=== PATIENT | male | born 1995 | race Caucasian/White ===

== ENCOUNTER 2023-03-30 12:52 | Emergency (ER) | payer SELFPAY ==
[2023-03-30 12:52] VITALS: BP 131/90; PULSE 74; RESP 18; TEMP 36.9; O2SAT 96
--- NOTE | 2023-03-30 13:08 | ED.DENTAL ---
HPI - Dental/Oral General Chief complaint: Dental/Oral Stated complaint: dental pain. Time Seen by Provider: 03/30/23 13:08 Source: patient Mode of arrival: ambulatory Limitations: no limitations History of Present Illness HPI Narrative: 28-year-old white male complains of left upper molar toothache for the last 3 days worse today. She has taken ibuprofen about 2000 mg in the last 24 hours. Hurts when he chews. Otherwise he is eating drinking voiding and stooling fine no fever cough runny nose sore throat bleeding or bruising swelling lumps or bumps rash or itching dizziness or lightheadedness weakness or numbness or any other complaints. Related Data Allergies Allergy/AdvReac Type Severity Reaction Status Date / Time No Known Allergies Allergy Verified 03/30/23 13:29 Review of Systems Review of Systems: All systems reviewed & are unremarkable except as noted in HPI and below Exam Narrative: White male no apparent distress.? Head:? Normocephalic atraumatic.? Eyes conjunctiva pink sclera nonicteric.? Ears TMs are normal.? Oropharynx is clear with moist mucous membranes no exudates.? Poor dentition especially upper teeth left posterior molar decayed with tenderness of the gum. Then also some mild swelling of the gum.Neck is supple no lymphadenopathy nontender full range of motion. Lungs are clear without wheezes rales or rhonchi.? Heart is regular rate rhythm without murmurs gallops or rubs.? Extremities no cyanosis clubbing or edema.? Neurological she is alert and oriented x4 motor and sensory grossly intact.? Skin is warm and dry without lesions. Course Vital Signs Vital signs: Vital Signs Temperature 36.9 C 03/30/23 12:52 Pulse Rate 74 03/30/23 12:52 Respiratory Rate 18 03/30/23 12:52 Blood Pressure 131/90 03/30/23 12:52 Pulse Oximetry 96 03/30/23 12:52 Oxygen Delivery Room Air 03/30/23 12:52 Temperature 36.7 C 03/30/23 14:14 Pulse Rate 99 03/30/23 14:14 Respiratory Rate 17 03/30/23 14:14 Blood Pressure 133/82 03/30/23 14:14 Pulse Oximetry 97 03/30/23 14:14 Oxygen Delivery Room Air 03/30/23 14:14 MDM - Dental/Oral MDM Narrative Medical decision making narrative: Patient placed in room # 3 History and physical performed. Independent Historian: Brynn Differential Dx includes but not limited to: dental abscess dental caries Medications were Reviewed: Medications, treatment, ED course: Toradol 30 IM Independently Interpreted by me: External Source Review: Shared decision Making: evaluation was discussed with patient his all questions were asked and answered they agree with plan. Social Situation Impacting Patients Care: DISCHARGE DIAGNOSIS: Dental pain DISPOSITION: discharged home CONDITION AT DISCHARGE: stable Discharge Plan Discharge Clinical Impression: Pain, dental Patient Disposition: Home, Self-Care Condition: Stable Instructions: Antibiotic Form, Dental Abscess (ED) Additional Instructions: Tylenol 500 m tablets 4 times a day as needed for pain. And or ibuprofen 200 m or 3 tablets 3 times a day as needed for pain. Tramadol 50 mg every 6 hours as needed for pain. Pen VK 500 twice a day for 10 days. Follow-up with primary care doctor and/or your dentist. Prescriptions: New penicillin V potassium 500 mg tablet 500 mg PO Q12H 10 Days Qty: 20 0RF tramadol 50 mg tablet 50 mg PO Q6H PRN (Reason: pain) 4 Days Qty: 12 0RF Follow-up/Referrals: Matt,Yeni Colin MD [Primary Care Provider] - Time of Disposition: 13:33
[2023-03-30] MEDS: KETOROLAC (*BKC) 60 MG/2 ML VIAL 30 MG IM (13:46)
[2023-03-30 14:14] VITALS: BP 133/82; PULSE 99; RESP 17; TEMP 36.7; O2SAT 97
== END 2023-03-30 14:14 | disposition home or self-care (01) ==
LOC: CHSED 13:39
PROVIDERS: Emergency Provider Emergency Medicine; PCP Internal Medicine Pulmonary Disease
DX: K08.89 Other specified disorders of teeth and supporting structures (principal)
CPT/HCPCS: 96372; 99283; J1885

== ENCOUNTER 2023-08-01 10:38 | Emergency (ER) | payer SELFPAY ==
[2023-08-01 10:38] VITALS: BP 158/104; PULSE 90; RESP 18; TEMP 36.1; O2SAT 97
--- NOTE | 2023-08-01 10:41 | ED.DENTAL ---
HPI - Dental/Oral General Chief complaint: Dental/Oral Stated complaint: dental pain Time Seen by Provider: 08/01/23 10:41 Source: patient Mode of arrival: ambulatory Limitations: no limitations History of Present Illness HPI Narrative: patient is a 28-year-old male with a left upper jaw pain around a fractured tooth. MD Complaint: tooth pain and tooth injury Location: Tooth # ( Fourteen) Onset (ago): day(s) (3) Duration: constant Severity: moderate Severity scale (1-10): 5 Relieving factors: nothing Exacerbating factors: chewing, cold, heat and drinking fluids Context: trauma (mechanism) ( fractured tooth with eating) Treatment prior to arrival: oral analgesic ( Tylenol) Related Data Allergies Allergy/AdvReac Type Severity Reaction Status Date / Time No Known Allergies Allergy Verified 03/30/23 13:29 Review of Systems Review of Systems: All systems reviewed & are unremarkable except as noted in HPI and below Constitutional: Constitutional: Reports no additional constitutional complaints Eyes: Eyes: Reports no additional eye complaints ENT: Reports system reviewed and no additional complaints, except as documented Cardiovascular: Cardiovascular: Reports no additional cardiovascular complaints Respiratory: Respiratory: Reports no additional respiratory complaints Gastrointestinal: Gastrointestinal: Reports no additional gastrointestinal complaints Genitourinary: Genitourinary: Reports no additional male genitourinary complaints Musculoskeletal: Musculoskeletal: Reports no additional musculoskeletal complaints Integumentary/Breasts: Skin/Breast: Reports system reviewed and no additional complaints, except as docu Neurologic: Reports system reviewed and no additional complaints, except as documented Psychiatric: Psychiatric: Reports no additional psychiatric complaints Endocrine: Endocrine: Reports no additional endocrine complaints Hematologic/Lymphatic: Hematologic/Lymphatic: Reports no additional hematologic/lymphatic complaints Allergic/Immunologic: Allergic/Immunologic: Reports no additional allergic/immunologic complaints Exam Const: General: healthy appearing Nutritional Appearance: well nourished Orientation/consciousness: patient oriented x3 HENMT: Head: normal to inspection Ears: external ears normal Face/Nose/Sinus: Normal external nose present Other: left upper jaw tooth 14 has a fracture with somewhat of an open tooth Eyes: Conjunctivae: conjunctivae normal Pupils: Equal, round and reactive pupils present EOM: EOMs intact bilaterally Neck: Neck: normal visual inspection Chest: Chest palpation & inspection: normal inspection of the chest Resp: Effort & Inspection: normal respiratory effort and not labored Auscultation: clear to auscultation bilaterally Cardio: Rate: regular rate Rhythm: regular rhythm Heart sounds: no murmurs GI: Inspection: non-distended GI Palp: Yes Soft to palpation and No Tenderness to palpation present (GI) Auscultation: normal bowel sounds : General: Yes bladder normal to palpation Back/Spine/Pelvis: Back: no CVA tenderness Skin: General skin exam: normal color Rashes: no rashes Wounds: no wounds Neuro: General: patient oriented x3 Cranial nerves: Yes Nystagmus not present Speech: normal speech Extrem: General: normal to inspection Psych: Mental Status: mental status grossly normal Affect: normal affect Attitude: cooperative Course Vital Signs Vital signs: Vital Signs Temperature 36.1 C L 08/01/23 10:38 Pulse Rate 90 08/01/23 10:38 Respiratory Rate 18 08/01/23 10:38 Blood Pressure 158/104 H 08/01/23 10:38 Pulse Oximetry 97 08/01/23 10:38 Oxygen Delivery Room Air 08/01/23 10:38 Temperature 36.1 C L 08/01/23 10:38 Pulse Rate 90 08/01/23 10:38 Respiratory Rate 18 08/01/23 10:38 Blood Pressure 158/104 H 08/01/23 10:38 Pulse Oximetry 97 08/01/23 10:38 Oxygen Delivery Room Air 08/01/23 1
[2023-08-01] MEDS: KETOROLAC (*BKC) 60 MG/2 ML VIAL IM (10:59)
[2023-08-01] MEDS: AMOXICILLIN/CLAVULANATE K 875-125 MG TAB 1 TABLET PO (11:00)
== END 2023-08-01 11:11 | disposition home or self-care (01) ==
PROVIDERS: Emergency Provider Emergency Medicine
DX: R68.84 Jaw pain (principal)
CPT/HCPCS: 96372; 99283; A9270; J1885

== ENCOUNTER 2023-10-03 23:45 | Emergency (ER) | payer SELFPAY ==
[2023-10-03 23:47] VITALS: BP 142/105; PULSE 84; RESP 18; TEMP 36.5; O2SAT 96
--- NOTE | 2023-10-03 23:52 | ED.DENTAL ---
HPI - Dental/Oral General Chief complaint: Dental/Oral Stated complaint: oral pain Time Seen by Provider: 10/03/23 23:52 Source: patient Mode of arrival: ambulatory Limitations: no limitations History of Present Illness HPI Narrative: Patient is a 28-year-old male with a left upper tooth pain after a filling has fallen out. He has an open tooth. MD Complaint: tooth pain Location: Tooth # ( Fourteen) Onset (ago): day(s) (3) Duration: constant Severity: moderate Severity scale (1-10): 7 Relieving factors: nothing Exacerbating factors: chewing, cold, heat and drinking fluids Context: history of dental caries and poor dental care Treatment prior to arrival: oral analgesic Related Data Allergies Allergy/AdvReac Type Severity Reaction Status Date / Time No Known Allergies Allergy Verified 03/30/23 13:29 Review of Systems Review of Systems: All systems reviewed & are unremarkable except as noted in HPI and below Constitutional: Constitutional: Reports no additional constitutional complaints Eyes: Eyes: Reports no additional eye complaints ENT: Reports system reviewed and no additional complaints, except as documented Cardiovascular: Cardiovascular: Reports no additional cardiovascular complaints Respiratory: Respiratory: Reports no additional respiratory complaints Gastrointestinal: Gastrointestinal: Reports no additional gastrointestinal complaints Genitourinary: Genitourinary: Reports no additional male genitourinary complaints Musculoskeletal: Musculoskeletal: Reports no additional musculoskeletal complaints Integumentary/Breasts: Skin/Breast: Reports system reviewed and no additional complaints, except as docu Neurologic: Reports system reviewed and no additional complaints, except as documented Psychiatric: Psychiatric: Reports no additional psychiatric complaints Endocrine: Endocrine: Reports no additional endocrine complaints Hematologic/Lymphatic: Hematologic/Lymphatic: Reports no additional hematologic/lymphatic complaints Allergic/Immunologic: Allergic/Immunologic: Reports no additional allergic/immunologic complaints Exam Const: General: healthy appearing Nutritional Appearance: well nourished Orientation/consciousness: patient oriented x3 HENMT: Head: normal to inspection Ears: external ears normal Face/Nose/Sinus: Normal external nose present Other: tooth 14 has an opening centrally where the cap/filling has fallen out; no abscess Eyes: Conjunctivae: conjunctivae normal Pupils: Equal, round and reactive pupils present EOM: EOMs intact bilaterally Neck: Neck: normal visual inspection Chest: Chest palpation & inspection: normal inspection of the chest Resp: Effort & Inspection: normal respiratory effort and not labored Auscultation: clear to auscultation bilaterally Cardio: Rate: regular rate Rhythm: regular rhythm Heart sounds: no murmurs GI: Inspection: non-distended Auscultation: normal bowel sounds : General: Yes bladder normal to palpation Back/Spine/Pelvis: Back: no CVA tenderness Skin: General skin exam: normal color Rashes: no rashes Wounds: no wounds Neuro: General: patient oriented x3 Cranial nerves: Yes Nystagmus not present Speech: normal speech Extrem: General: normal to inspection Psych: Mental Status: mental status grossly normal Affect: normal affect Attitude: cooperative Course Vital Signs Vital signs: Vital Signs Temperature 36.5 C 10/03/23 23:47 Pulse Rate 84 10/03/23 23:47 Respiratory Rate 18 10/03/23 23:47 Blood Pressure 142/105 H 10/03/23 23:47 Pulse Oximetry 96 10/03/23 23:47 Oxygen Delivery Room Air 10/03/23 23:47 Temperature 36.5 C 10/03/23 23:47 Pulse Rate 84 10/03/23 23:47 Respiratory Rate 18 10/03/23 23:47 Blood Pressure 142/105 H 10/03/23 23:47 Pulse Oximetry 96 10/03/23 23:47 Oxygen Delivery Room Air 10/03/23 23:47 MDM - Dental/Oral MDM Narrative Medical decision ma
[2023-10-04] MEDS: AMOXICILLIN 500 MG CAPSULE PO (00:07)
[2023-10-04] MEDS: KETOROLAC (*BKC) 60 MG/2 ML VIAL IM (00:09)
[2023-10-04 00:24] VITALS: BP 135/90; PULSE 80; RESP 18; TEMP 36.6; O2SAT 98
== END 2023-10-04 00:24 | disposition home or self-care (01) ==
PROVIDERS: Emergency Provider Emergency Medicine
DX: R68.84 Jaw pain (principal)
CPT/HCPCS: 96372; 99283; A9270; J1885

== ENCOUNTER 2023-11-16 18:10 | Emergency (ER) | payer SELFPAY ==
[2023-11-16 18:10] VITALS: BP 129/90; PULSE 84; RESP 18; TEMP 36.7; O2SAT 98
--- NOTE | 2023-11-16 18:42 | ED.DENTAL ---
HPI - Dental/Oral General Chief complaint: Dental/Oral Stated complaint: DENTAL PAIN Time Seen by Provider: 11/16/23 18:12 Source: patient Mode of arrival: ambulatory Limitations: no limitations History of Present Illness HPI Narrative: Patient is 28 year male with significant past medical history that presents today for a dental infection. Patient has had infection in his upper back left molar for the last 4 days. Did his 2 toes also shift but infection been getting worse and has now very painful. He has not seen a dentist yet but he does plan to see 1. MD Complaint: tooth pain Teeth map: 1. Abscess Onset (ago): day(s) Duration: constant Severity: moderate Severity scale (1-10): 4 Relieving factors: NSAIDs Exacerbating factors: chewing Context: history of dental caries Associated symptoms: fever Treatment prior to arrival: none Related Data Home Medications Medication Instructions Recorded Confirmed No Home Medications 11/16/23 11/16/23 Allergies Allergy/AdvReac Type Severity Reaction Status Date / Time No Known Allergies Allergy Verified 11/16/23 18:19 Review of Systems Review of Systems: All systems reviewed & are unremarkable except as noted in HPI and below Constitutional: Constitutional: Reports as per HPI Eyes: Eyes: Reports no additional eye complaints ENT: Reports as per HPI Cardiovascular: Cardiovascular: Reports no additional cardiovascular complaints Respiratory: Respiratory: Reports no additional respiratory complaints Gastrointestinal: Gastrointestinal: Reports no additional gastrointestinal complaints Genitourinary: Genitourinary: Reports no additional male genitourinary complaints Musculoskeletal: Musculoskeletal: Reports no additional musculoskeletal complaints Integumentary/Breasts: Skin/Breast: Reports system reviewed and no additional complaints, except as docu Neurologic: Reports system reviewed and no additional complaints, except as documented Psychiatric: Psychiatric: Reports no additional psychiatric complaints Endocrine: Endocrine: Reports no additional endocrine complaints Hematologic/Lymphatic: Hematologic/Lymphatic: Reports no additional hematologic/lymphatic complaints Allergic/Immunologic: Allergic/Immunologic: Reports no additional allergic/immunologic complaints Exam Const: General: healthy appearing Nutritional Appearance: well nourished Orientation/consciousness: patient oriented x3 HENMT: Head: normal to inspection Ears: external ears normal Face/Nose/Sinus: Normal external nose present Face and sinus: normal facial exam Other: ship 2 with an abscess formation and upper back left molar Eyes: Conjunctivae: conjunctivae normal Pupils: Equal, round and reactive pupils present EOM: EOMs intact bilaterally Neck: Neck: normal visual inspection Chest: Chest palpation & inspection: normal inspection of the chest Resp: Effort & Inspection: normal respiratory effort Auscultation: clear to auscultation bilaterally Cardio: Rate: regular rate Rhythm: regular rhythm GI: GI Palp: Yes Soft to palpation Back/Spine/Pelvis: Back: no CVA tenderness Skin: General skin exam: normal color Rashes: no rashes Wounds: no wounds Neuro: General: patient oriented x3 Cranial nerves: Yes Nystagmus not present Extrem: General: normal to inspection Psych: Mental Status: mental status grossly normal Affect: normal affect Course Vital Signs Vital signs: Vital Signs Temperature 98.0 F 11/16/23 18:10 Pulse Rate 84 11/16/23 18:10 Respiratory Rate 18 11/16/23 18:10 Blood Pressure 129/90 11/16/23 18:10 Pulse Oximetry 98 11/16/23 18:10 Oxygen Delivery Room Air 11/16/23 18:10 Temperature 98.0 F 11/16/23 18:10 Pulse Rate 84 11/16/23 18:10 Respiratory Rate 18 11/16/23 18:10 Blood Pressure 129/90 11/16/23 18:10 Pulse Oximetry 98 11/16/23 18:10 Oxygen Delivery Room Air 11/16/23 18:10 MDM - Den
[2023-11-16] MEDS: CLINDAMYCIN HCL 150 MG CAP 300 MG PO (19:14)
[2023-11-16 19:25] VITALS: BP 130/78; PULSE 82; RESP 18; O2SAT 99
== END 2023-11-16 19:25 | disposition home or self-care (01) ==
PROVIDERS: Emergency Provider Family Medicine
DX: K04.7 Periapical abscess without sinus (principal)
CPT/HCPCS: 99283; A9270

== ENCOUNTER 2023-11-29 17:35 | Emergency (ER) | payer SELFPAY ==
[2023-11-29 18:10] VITALS: BP 136/102; PULSE 98; RESP 20; TEMP 36.8; O2SAT 97
--- NOTE | 2023-11-29 18:33 | ED.GENADULT ---
HPI - General Adult General Chief complaint: Dental/Oral Stated complaint: left cheek swelling; dental pain Related Data Allergies Allergy/AdvReac Type Severity Reaction Status Date / Time No Known Allergies Allergy Verified 11/16/23 18:19 Course Vital Signs Vital signs: Vital Signs Temperature 36.8 C 11/29/23 18:10 Pulse Rate 98 11/29/23 18:10 Respiratory Rate 11/29/23 18:10 Blood Pressure 136/102 H 11/29/23 18:10 Pulse Oximetry 97 11/29/23 18:10 Oxygen Delivery Room Air 11/29/23 18:10 Temperature 36.8 C 11/29/23 18:10 Pulse Rate 98 11/29/23 18:10 Respiratory Rate 11/29/23 18:10 Blood Pressure 136/102 H 11/29/23 18:10 Pulse Oximetry 97 11/29/23 18:10 Oxygen Delivery Room Air 11/29/23 18:10 Medical Decision Making Vital Signs Vital Signs: Vital Signs Temperature 36.8 C 11/29/23 18:10 Pulse Rate 98 11/29/23 18:10 Respiratory Rate 11/29/23 18:10 Blood Pressure 136/102 H 11/29/23 18:10 Pulse Oximetry 97 11/29/23 18:10 Oxygen Delivery Room Air 11/29/23 18:10 Temperature 36.8 C 11/29/23 18:10 Pulse Rate 98 11/29/23 18:10 Respiratory Rate 11/29/23 18:10 Blood Pressure 136/102 H 11/29/23 18:10 Pulse Oximetry 97 11/29/23 18:10 Oxygen Delivery Room Air 11/29/23 18:10 Discharge Plan Discharge Prescriptions: No Action clindamycin HCl 300 mg capsule 300 mg PO TID Qty: 30 0RF Follow-up/Referrals: UNKNOWN,DOCTOR [Primary Care Provider] - Stand Alone Forms: Work/School Release IP
--- NOTE | 2023-11-29 18:45 | ED.DENTAL ---
HPI - Dental/Oral General Chief complaint: Dental/Oral Stated complaint: left cheek swelling; dental pain Source: patient Mode of arrival: ambulatory Limitations: no limitations History of Present Illness HPI Narrative: 28-year-old male with extensive dental caries presents to the ED with a 3 day history of -- left upper dental pain with swelling of the jaw. No fever or chills. Complaint: tooth pain Location: Tooth # ( 16) Onset (ago): day(s) ( 3 days) Duration: constant Severity: moderate Relieving factors: nothing Exacerbating factors: nothing Context: history of dental caries Associated symptoms: gum swelling and other ( left upper jaw pain) Treatment prior to arrival: none Related Data Allergies Allergy/AdvReac Type Severity Reaction Status Date / Time No Known Allergies Allergy Verified 11/16/23 18:19 Review of Systems Review of Systems: All systems reviewed & are unremarkable except as noted in HPI and below PMFSH Past Medical History Medical History Dental caries Exam Const: Orientation/consciousness: patient oriented x3 Limitations: no limitations HENMT: Head: normal to inspection Ears: external ears normal Face/Nose/Sinus: Normal external nose present Face and sinus: normal facial exam Mouth: Yes Normal oral and palatal mucosa present Teeth and gingiva: dentition normal ( extensive dental caries involving multiple teeth) and abnormal tooth and associated gingiva ( 16. Is fractured and carious. Adjoining Jaw is swollen.) Throat: posterior oropharynx normal Eyes: Conjunctivae: conjunctivae normal Pupils: Equal, round and reactive pupils present EOM: EOMs intact bilaterally Direct Ophthalmoscopy: no photophobia Neck: Neck: normal visual inspection, no lymphadenopathy and no meningeal signs Chest: Chest palpation & inspection: normal inspection of the chest Resp: Effort & Inspection: normal respiratory effort Auscultation: clear to auscultation bilaterally Cardio: Rate: regular rate Rhythm: regular rhythm GI: Auscultation: normal bowel sounds Rectal Exam: normal sphincter tone : General: Yes no CVA tenderness Back/Spine/Pelvis: Back: no CVA tenderness Skin: General skin exam: normal color Rashes: no rashes Wounds: no wounds Neuro: General: patient oriented x3, moves all extremities, no meningeal signs, no focal motor deficits and CN's II-XI intact bilaterally Cranial nerves: Yes Nystagmus not present Speech: normal speech Gait exam (Neuro): Normal gait present Extrem: General: normal to inspection and no clubbing, cyanosis or edema Psych: Mental Status: mental status grossly normal Affect: normal affect Attitude: cooperative Course Course Emergency Course: Left upper dental pain with adjoining jaw swelling extensive dental caries Vital Signs Vital signs: Vital Signs Temperature 36.8 C 11/29/23 18:10 Pulse Rate 98 11/29/23 18:10 Respiratory Rate 11/29/23 18:10 Blood Pressure 136/102 H 11/29/23 18:10 Pulse Oximetry 97 11/29/23 18:10 Oxygen Delivery Room Air 11/29/23 18:10 Temperature 36.8 C 11/29/23 18:10 Pulse Rate 98 11/29/23 18:10 Respiratory Rate 11/29/23 18:10 Blood Pressure 136/102 H 11/29/23 18:10 Pulse Oximetry 97 11/29/23 18:10 Oxygen Delivery Room Air 11/29/23 18:10 Discharge Plan Discharge Clinical Impression: Toothache, Dental caries Patient Disposition: Home, Self-Care Condition: Stable Instructions: Antibiotic Form, Dental Abscess (ED), Toothache (ED) Patient Language: Telugu Prescriptions: New clindamycin HCl 300 mg capsule 300 mg PO Q8H Qty: 20 0RF No Action clindamycin HCl 300 mg capsule 300 mg PO TID Qty: 30 0RF Follow-up/Referrals: UNKNOWN,DOCTOR [Non-Staff] - Time of Disposition: 18:50
[2023-11-29] MEDS: HYDROcodone/acetaminophen (*CRX) 5-325 MG TABLET 1 TAB PO (18:58)
[2023-11-29] MEDS: CLINDAMYCIN HCL 150 MG CAP 300 MG PO (18:58)
== END 2023-11-29 19:02 | disposition home or self-care (01) ==
PROVIDERS: Emergency Provider Internal Medicine Critical Care Medicine
DX: K02.9 Dental caries, unspecified (principal)
CPT/HCPCS: 99283; A9270

== ENCOUNTER 2023-12-02 17:01 | Emergency (ER) | payer SELFPAY ==
[2023-12-02 17:01] VITALS: BP 131/107; PULSE 85; RESP 18; TEMP 36.8; O2SAT 96
[2023-12-02 17:05] VITALS: TEMP 36.8
--- NOTE | 2023-12-02 17:14 | ED.DENTAL ---
HPI - Dental/Oral General Chief complaint: Dental/Oral Stated complaint: dental pain Time Seen by Provider: 12/02/23 17:11 Source: patient Mode of arrival: ambulatory Limitations: no limitations History of Present Illness HPI Narrative: S a 28-year-old male that presents with some dental pain and surrounding gum inflammation left upper molar area with facial swelling and left submandibular gland tenderness with no fever chills no shortness of breath. Patient has been on a round of clindamycin with no relief. MD Complaint: tooth pain Teeth map: 1. Dental abscess with surrounding gum inflammation Onset (ago): week(s) Severity: moderate Related Data Allergies Allergy/AdvReac Type Severity Reaction Status Date / Time No Known Allergies Allergy Verified 12/02/23 17:05 Review of Systems Review of Systems: All systems reviewed & are unremarkable except as noted in HPI and below PMFSH Past Medical History Medical History Dental caries Exam Const: General: healthy appearing and no acute distress Nutritional Appearance: well nourished Orientation/consciousness: patient oriented x3 Limitations: no limitations HENMT: Head: normal to inspection Eyes: Conjunctivae: conjunctivae normal Neck: Neck: normal visual inspection and lymphadenopathy Chest: Chest palpation & inspection: normal inspection of the chest Resp: Effort & Inspection: normal respiratory effort Auscultation: clear to auscultation bilaterally Cardio: Rate: regular rate Rhythm: regular rhythm GI: GI Palp: Yes Soft to palpation Auscultation: normal bowel sounds Course Course Emergency Course: Patient received a dose of 1g ceftriaxone IM and 60mg of IM Toradol. Vital Signs Vital signs: Vital Signs Temperature 36.8 C 12/02/23 17:01 Pulse Rate 85 12/02/23 17:01 Respiratory Rate 18 12/02/23 17:01 Blood Pressure 131/107 H 12/02/23 17:01 Pulse Oximetry 96 12/02/23 17:01 Oxygen Delivery Room Air 12/02/23 17:01 Temperature 36.8 C 12/02/23 17:05 Pulse Rate 85 12/02/23 17:01 Respiratory Rate 18 12/02/23 17:01 Blood Pressure 131/107 H 12/02/23 17:01 Pulse Oximetry 96 12/02/23 17:01 Oxygen Delivery Room Air 12/02/23 17:01 Critical Care Time Critical Care Time Critical Care Time: No Discharge Plan Discharge Clinical Impression: Toothache, Dental abscess, Dental caries Patient Disposition: Home, Self-Care Condition: Stable Instructions: Antibiotic Form, Dental Abscess (ED) Additional Instructions: Advised to take medication as prescribed follow-up with dentist as scheduled. Prescriptions: New amoxicillin-pot clavulanate [Augmentin] 500-125 mg tablet 1 tablet PO TID Qty: 30 0RF naproxen 500 mg tablet 500 mg PO BID PRN (Reason: pain) Qty: 14 0RF No Action clindamycin HCl 300 mg capsule 300 mg PO TID Qty: 30 0RF clindamycin HCl 300 mg capsule 300 mg PO Q8H Qty: 20 0RF Follow-up/Referrals: Marsha Gutierrez TECH [Primary Care Provider] - Stand Alone Forms: Work/School Release IP Time of Disposition: 17:17
[2023-12-02] MEDS: cefTRIAXone 1 GM, LIDOCAINE HCL 1% LOCAL INJ 2.1 ML IM (17:21)
[2023-12-02] MEDS: KETOROLAC (*BKC) 60 MG/2 ML VIAL IM (17:21)
[2023-12-02 17:45] VITALS: BP 131/107; PULSE 85; RESP 18; TEMP 36.8; O2SAT 96
== END 2023-12-02 17:45 | disposition home or self-care (01) ==
LOC: CHSED 17:30
PROVIDERS: Emergency Provider Emergency Medicine
DX: K04.7 Periapical abscess without sinus (principal); K02.9 Dental caries, unspecified
CPT/HCPCS: 96372; 99284; J0696; J1885

== ENCOUNTER 2024-01-08 11:40 | Emergency (ER) | payer SELFPAY ==
[2024-01-08 11:41] VITALS: BP 132/89; PULSE 88; RESP 18; TEMP 36.7; O2SAT 98
--- NOTE | 2024-01-08 11:44 | ED.DENTAL ---
HPI - Dental/Oral General Chief complaint: Dental/Oral Stated complaint: dental pain Time Seen by Provider: 01/08/24 11:44 Source: patient Mode of arrival: ambulatory Limitations: no limitations History of Present Illness HPI Narrative: This is a 28-year-old male with history of dental caries, presents to the emergency department complaining right upper jaw pain. The patient states he has a chipped tooth in the area that become more painful and the last week. Overnight, the pain increased to an 8/10. This has improved with use of [id number] Tylenol and ibuprofen. The patient states he took ibuprofen approximately 1 hour prior to arrival. He denies difficulty breathing, weakness/numbness, loss of consciousness other neck swelling. He states he has an appointment with a dentist in 2 weeks. He has no other complaints at this time. Related Data Allergies Allergy/AdvReac Type Severity Reaction Status Date / Time No Known Allergies Allergy Verified 01/08/24 11:41 Review of Systems Review of Systems: All systems reviewed & are unremarkable except as noted in HPI and below PMFSH Past Medical History Medical History Dental caries Surgical History Surgical History No significant past surgical history Social History Social History Smoking status: Never smoker Alcohol intake: current Substance use: current Substance use type: marijuana Exam Narrative: GENERAL: Well-developed, well-nourished, and in no acute distress. HEAD: Normocephalic, atraumatic. There is mild right upper maxillary swelling without erythema. EYES: PERRLA and EOMI. ENT: Nares clear, no rhinorrhea or epistaxis. Mucous membranes moist. Oropharynx without tonsillar hypertrophy exudate or other lesions. Tooth #2 demonstrates changes consistent with dental caries and DKA, the base of the scene to this erythematous, tender and swollen. NECK: Supple. No adenopathy or masses. No carotid bruits or JVD CHEST: Clear to auscultation. No respiratory distress. No wheezes rales or rhonchi HEART: Regular rate and rhythm. No murmur heard. Normal peripheral pulses. SKIN: Warm, dry, no rash. NEURO: Alert and oriented x3. No focal deficit. Moving all 4 limbs spontaneously PSYCH: Normal mood and affect. Course Course Emergency Course: 11:45 - The patient's exam is consistent with dental caries and subsequent abscess. Will discharge with oral antibiotics and recommendation to follow up with dental as scheduled. I discussed the findings and recommendations with the patient. Discussed return and emergency precautions including signs/symptoms of deep space neck infection and airway compromise. The patient voiced understanding and agreement with the plan. All questions answered to his satisfaction. Vital Signs Vital signs: Vital Signs Temperature 98.0 F 01/08/24 11:41 Pulse Rate 88 01/08/24 11:41 Respiratory Rate 18 01/08/24 11:41 Blood Pressure 132/89 01/08/24 11:41 Pulse Oximetry 98 01/08/24 11:41 Oxygen Delivery Room Air 01/08/24 11:41 Temperature 98.0 F 01/08/24 11:41 Pulse Rate 88 01/08/24 11:41 Respiratory Rate 18 01/08/24 11:41 Blood Pressure 132/89 01/08/24 11:41 Pulse Oximetry 98 01/08/24 11:41 Oxygen Delivery Room Air 01/08/24 11:41 MDM - Dental/Oral MDM Narrative Medical decision making narrative: plan: Oral antibiotics, dental follow-up, primary care follow-up Differential Diagnosis Differential diagnosis: Likely dental caries, toothache, dental abscess and other Discharge Plan Discharge Clinical Impression: Toothache, Dental abscess Patient Disposition: Home, Self-Care Condition: Stable Instructions: Antibiotic Form, Dental Abscess (ED) Additional Instructions: You were seen in the emergency departm
[2024-01-08 11:52] VITALS: BP 132/89; PULSE 88; RESP 18; TEMP 36.7; O2SAT 98
== END 2024-01-08 11:52 | disposition home or self-care (01) ==
LOC: CHSED 11:50
PROVIDERS: Emergency Provider Preventive Medicine Aerospace Medicine
DX: K04.7 Periapical abscess without sinus (principal)
CPT/HCPCS: 99283

== ENCOUNTER 2024-03-15 13:34 | Emergency (ER) | payer SELFPAY ==
[2024-03-15 13:35] VITALS: BP 136/90; PULSE 88; RESP 18; TEMP 36.8; O2SAT 96
--- NOTE | 2024-03-15 13:36 | ED.DENTAL ---
HPI - Dental/Oral General Chief complaint: Dental/Oral Stated complaint: dental pain Time Seen by Provider: 03/15/24 13:36 Source: patient Mode of arrival: ambulatory Limitations: no limitations History of Present Illness HPI Narrative: 29-year-old male with a history of dental caries presents to the ED with -- left upper molar dental pain. He has had previous episodes of dental pain in that region. No fever or chills Complaint: tooth pain Location: Tooth # (16,11,12) Onset (ago): day(s) ( 3 days) Duration: constant Severity: moderate Relieving factors: nothing Exacerbating factors: cold and heat Context: history of dental caries Associated symptoms: gum swelling Treatment prior to arrival: none Related Data Allergies Allergy/AdvReac Type Severity Reaction Status Date / Time No Known Allergies Allergy Verified 03/15/24 13:36 Review of Systems Review of Systems: All systems reviewed & are unremarkable except as noted in HPI and below PMFSH Past Medical History Medical History Dental caries Surgical History Surgical History No significant past surgical history Social History Social History Smoking status: Never smoker Alcohol intake: current Substance use: current Substance use type: marijuana Exam Narrative: vitals are stable Const: General: healthy appearing Nutritional Appearance: well nourished Orientation/consciousness: patient oriented x3 Limitations: no limitations HENMT: Head: normal to inspection Ears: external ears normal Face/Nose/Sinus: Normal external nose present Face and sinus: normal facial exam Mouth: Yes Normal oral and palatal mucosa present Teeth and gingiva: dentition normal ( multiple fractured teeth including 1,16,) Throat: posterior oropharynx normal Eyes: Conjunctivae: conjunctivae normal Pupils: Equal, round and reactive pupils present EOM: EOMs intact bilaterally Direct Ophthalmoscopy: no photophobia Neck: Neck: normal visual inspection, no lymphadenopathy and no meningeal signs Chest: Chest palpation & inspection: normal inspection of the chest Resp: Effort & Inspection: normal respiratory effort Auscultation: clear to auscultation bilaterally Cardio: Rate: regular rate Rhythm: regular rhythm GI: Auscultation: normal bowel sounds : General: Yes no CVA tenderness Skin: General skin exam: normal color Rashes: no rashes Wounds: no wounds Neuro: General: patient oriented x3, moves all extremities, no meningeal signs, no focal motor deficits and CN's II-XI intact bilaterally Cranial nerves: Yes Nystagmus not present Speech: normal speech Gait exam (Neuro): Normal gait present Extrem: General: normal to inspection and no clubbing, cyanosis or edema Psych: Mental Status: mental status grossly normal Affect: normal affect Course Course Emergency Course: dental caries-- will treat with clindamycin. patient is scheduled to see a dentist on March 31 dental pain Vital Signs Vital signs: Vital Signs Temperature 36.8 C 03/15/24 13:35 Pulse Rate 88 03/15/24 13:35 Respiratory Rate 18 03/15/24 13:35 Blood Pressure 136/90 03/15/24 13:35 Pulse Oximetry 96 03/15/24 13:35 Oxygen Delivery Room Air 03/15/24 13:35 Temperature 36.8 C 03/15/24 13:35 Pulse Rate 88 03/15/24 13:35 Respiratory Rate 18 03/15/24 13:35 Blood Pressure 136/90 03/15/24 13:35 Pulse Oximetry 96 03/15/24 13:35 Oxygen Delivery Room Air 03/15/24 13:35 MDM - Dental/Oral MDM Narrative Medical decision making narrative: dental pain dental caries Differential Diagnosis Differential diagnosis: Likely gingival abscess, toothache and dental abscess Discharge Plan Discharge Clinical Impression: Dental caries, Toothache Patient Disposition: Home, Self-Care Condition: Stable Instructions: Antibiotic Form, Toothache (ED) Patient Language: [place] Prescriptions: New clindamycin HCl 300 mg capsule 300 mg PO Q8H Qty: 20 0RF No Action amoxicillin-pot clavulanate 875-125 mg tablet 1 tablet PO Q12H 7 Days Qty: 14 0RF Follow-up/Referrals: Jeanne Gutierrez MD [Primary Care Provider] - Stand Alone Forms: Work/School Release IP Time of Disposition: 13:55
[2024-03-15] MEDS: CLINDAMYCIN HCL 150 MG CAP 300 MG PO (14:06)
== END 2024-03-15 14:29 | disposition home or self-care (01) ==
LOC: CHSED 14:07
PROVIDERS: Emergency Provider Internal Medicine Critical Care Medicine; PCP Family Medicine
DX: K02.9 Dental caries, unspecified (principal)
CPT/HCPCS: 99283; A9270

== ENCOUNTER 2024-03-16 10:21 | Emergency (ER) | payer SELFPAY ==
[2024-03-16 10:26] VITALS: BP 139/99; PULSE 80; RESP 18; TEMP 36.2; O2SAT 97
--- NOTE | 2024-03-16 11:15 | ED_ITS ---
HPI - Dental/Oral General Chief complaint: Dental/Oral Stated complaint: dental pain Time Seen by Provider: 03/16/24 10:29 Source: patient Mode of arrival: ambulatory Limitations: no limitations History of Present Illness HPI Narrative: this is a 29-year-old female with a history of dental caries and dental pain was seen yesterday and given clindamycin for a dental abscess, patient returns to ER stating that clindamycin usually does not work for him. Patient has been having more dental pain than usual with some no fever chills no shortness of breath no nausea vomiting. MD Complaint: tooth pain Teeth map: 2 1. dental pain with surrounding gum inflammation Onset (ago): day(s) Duration: constant Severity: moderate Severity scale (1-10): 6 Relieving factors: nothing Related Data Allergies Allergy/AdvReac Type Severity Reaction Status Date / Time No Known Allergies Allergy Verified 03/15/24 13:36 Review of Systems 2 Review of Systems: All systems reviewed & are unremarkable except as noted in HPI and below PMFSH Past Medical History Medical History Dental caries Surgical History Surgical History No significant past surgical history Social History Social History Smoking status: Never smoker Alcohol intake: current Substance use: current Substance use type: marijuana Exam 2 Const: General: healthy appearing and no acute distress Nutritional Appearance: well nourished Orientation/consciousness: patient oriented x3 Limitations: no limitations Eyes: Conjunctivae: conjunctivae normal Neck: Neck: normal visual inspection and no lymphadenopathy Chest: Chest palpation & inspection: normal inspection of the chest Resp: Effort & Inspection: normal respiratory effort Auscultation: clear to auscultation bilaterally Cardio: Rate: regular rate Rhythm: regular rhythm GI: Auscultation: normal bowel sounds Course Course Emergency Course: Patient received 60mg IM Toradol and after reassessment pain level has improved and will send antibiotics to patient's pharmacy. Vital Signs Vital signs: Vital Signs Temperature 36.2 C L 03/16/24 10:26 Pulse Rate 80 03/16/24 10:26 Respiratory Rate 18 03/16/24 10:26 Blood Pressure 139/99 H 03/16/24 10:26 Pulse Oximetry 97 03/16/24 10:26 Oxygen Delivery Room Air 03/16/24 10:26 Temperature 36.2 C L 03/16/24 10:26 Pulse Rate 80 03/16/24 10:26 Respiratory Rate 18 03/16/24 10:26 Blood Pressure 139/99 H 03/16/24 10:26 Pulse Oximetry 97 03/16/24 10:26 Oxygen Delivery Room Air 03/16/24 10:26 Critical Care Time Critical Care Time Critical Care Time: No Discharge Plan Discharge Clinical Impression: Dental abscess Patient Disposition: Home, Self-Care Condition: Stable Instructions: Antibiotic Form, Dental Abscess (ED) Additional Instructions: Patient prescribed antibiotic advised to take medicine as prescribed and follow-up with dentist. Patient Language: Italian Prescriptions: New amoxicillin-pot clavulanate [Augmentin] 500-125 mg tablet 1 tablet PO TID Qty: 30 0RF naproxen 500 mg tablet 500 mg PO BID PRN (Reason: pain) Qty: 20 0RF No Action amoxicillin-pot clavulanate 875-125 mg tablet 1 tablet PO Q12H 7 Days Qty: 14 0RF clindamycin HCl 300 mg capsule 300 mg PO Q8H Qty: 20 0RF Follow-up/Referrals: Jeanne Gutierrez MD [Primary Care Provider] - Stand Alone Forms: Work/School Release IP Time of Disposition: 11:21
[2024-03-16] MEDS: KETOROLAC (*BKC) 60 MG/2 ML VIAL IM (11:26)
[2024-03-16 11:30] VITALS: BP 156/119; PULSE 63; RESP 18; TEMP 36.8; O2SAT 98
== END 2024-03-16 11:30 | disposition home or self-care (01) ==
PROVIDERS: Emergency Provider Emergency Medicine; PCP Family Medicine
DX: K04.7 Periapical abscess without sinus (principal)
CPT/HCPCS: 96372; 99283; J1885

== ENCOUNTER 2024-05-03 08:37 | Emergency (ER) | payer SELFPAY ==
[2024-05-03 08:38] VITALS: BP 148/115; PULSE 91; RESP 18; TEMP 36.8; O2SAT 97
--- NOTE | 2024-05-03 08:55 | ED_ITS ---
HPI - Dental/Oral General Chief complaint: Dental/Oral Stated complaint: mouth pain Time Seen by Provider: 05/03/24 08:55 History of Present Illness HPI Narrative: 29-year-old male with dental caries presents to the ED with multiple day history of -- left upper jaw pain. The patient has had multiple courses of antibiotics for infection left upper premolars and molars. the patient is scheduled for extraction. MD Complaint: tooth pain Location: Tooth # ( One, 16, 13 with surrounding gingivitis) Onset (ago): day(s) Duration: constant Severity: moderate Relieving factors: nothing Exacerbating factors: nothing Context: history of dental caries Treatment prior to arrival: none Related Data Allergies Allergy/AdvReac Type Severity Reaction Status Date / Time No Known Allergies Allergy Verified 05/03/24 08:47 Review of Systems Review of Systems: All systems reviewed & are unremarkable except as noted in HPI and below PMFSH Past Medical History Medical History Dental caries Surgical History Surgical History No significant past surgical history Social History Social History Smoking status: Never smoker Alcohol intake: current Substance use: current Substance use type: marijuana Exam Narrative: afebrile. Blood pressure 148/115 Const: Orientation/consciousness: patient oriented x3 Limitations: no limitations HENMT: Head: normal to inspection Ears: external ears normal Face/Nose/Sinus: Normal external nose present Face and sinus: normal facial exam Teeth and gingiva: abnormal tooth and associated gingiva ( 1, 13, 16 are partially fractured and carious.) Throat: posterior oropharynx normal Eyes: Conjunctivae: conjunctivae normal Pupils: Equal, round and reactive pupils present EOM: EOMs intact bilaterally Direct Ophthalmoscopy: no photophobia Neck: Neck: normal visual inspection, no lymphadenopathy and no meningeal signs Chest: Chest palpation & inspection: normal inspection of the chest Resp: Effort & Inspection: normal respiratory effort Auscultation: clear to auscultation bilaterally Cardio: Rate: regular rate Rhythm: regular rhythm GI: Auscultation: normal bowel sounds Other: No tenderness/ rigidity /rebound : General: Yes no CVA tenderness Back/Spine/Pelvis: Back: no CVA tenderness Skin: General skin exam: normal color Rashes: no rashes Wounds: no wounds Neuro: General: patient oriented x3, moves all extremities, no meningeal signs and no focal motor deficits Cranial nerves: Yes Nystagmus not present Speech: normal speech Gait exam (Neuro): Normal gait present Extrem: General: normal to inspection and no clubbing, cyanosis or edema Psych: Mental Status: mental status grossly normal Affect: normal affect Attitude: cooperative Course Course Emergency Course: dental caries with dental fracture dental pain Vital Signs Vital signs: Vital Signs Temperature 36.8 C 05/03/24 08:38 Pulse Rate 91 05/03/24 08:38 Respiratory Rate 18 05/03/24 08:38 Blood Pressure 148/115 H 05/03/24 08:38 Pulse Oximetry 97 05/03/24 08:38 Oxygen Delivery Room Air 05/03/24 08:38 Temperature 36.8 C 05/03/24 08:38 Pulse Rate 91 05/03/24 08:38 Respiratory Rate 18 05/03/24 08:38 Blood Pressure 148/115 H 05/03/24 08:38 Pulse Oximetry 97 05/03/24 08:38 Oxygen Delivery Room Air 05/03/24 08:38 MDM - Dental/Oral MDM Narrative Medical decision making narrative: dental pain dental caries Differential Diagnosis Differential diagnosis: Likely gingival abscess, dental abscess and fracture of tooth Medical Records Attestation: I reviewed the patient's medical records. Discharge Plan Discharge Clinical Impression: Dental caries, Toothache Patient Disposition: Home, Self-Care Condition: Stable Instructions: Antibiotic Form, Dental Abscess (ED), Toothache (ED) Patient Language: [place] Prescriptions: New amoxicillin-pot clavulanate 875-125 mg tablet 1 tablet PO Q12H Qty: 14 0RF Follow-up/Referrals: Jeanne Gutierrez MD [Primary Care Provider] - Stand Alone Forms: Work/School Release IP Time of Disposition: 09:05
== END 2024-05-03 09:19 | disposition home or self-care (01) ==
PROVIDERS: Emergency Provider Internal Medicine Critical Care Medicine; PCP Family Medicine
DX: K02.9 Dental caries, unspecified (principal)
CPT/HCPCS: 99283

== ENCOUNTER 2024-12-07 15:16 | Emergency (ER) | payer BC, SELFPAY ==
--- NOTE | 2024-12-07 15:19 | ED_ITS ---
HPI - Dental/Oral General Chief complaint: Dental/Oral Stated complaint: dental pain Time Seen by Provider: 12/07/24 15:19 Source: patient Mode of arrival: ambulatory Limitations: no limitations History of Present Illness HPI Narrative: this is a 29-year-old male with some history of a cracked tooth and surrounding gum inflammation with dental pain has an appointment see oral surgeon but not anytime soon as appointment approximately in 1 month. There is no fever chills no shortness of breath no nausea vomiting. MD Complaint: tooth pain Teeth map: 2 1. dental pain with surrounding gum inflammation and a cracked tooth Onset (ago): day(s) Duration: constant Severity: mild Relieving factors: NSAIDs Related Data Allergies Allergy/AdvReac Type Severity Reaction Status Date / Time No Known Allergies Allergy Verified 12/07/24 15:19 Review of Systems 2 Review of Systems: All systems reviewed & are unremarkable except as noted in HPI and below PMFSH Past Medical History Medical History Dental caries Surgical History Surgical History No significant past surgical history Social History Social History Smoking status: Never smoker Alcohol intake: current Substance use: current Substance use type: marijuana Exam 2 Const: General: healthy appearing and no acute distress Nutritional Appearance: well nourished Orientation/consciousness: patient oriented x3 Limitations: no limitations HENMT: Head: normal to inspection Other: Dental pain left upper 13th tooth Eyes: Conjunctivae: conjunctivae normal Neck: Neck: normal visual inspection, no lymphadenopathy and no meningeal signs Chest: Chest palpation & inspection: normal inspection of the chest Resp: Effort & Inspection: normal respiratory effort Auscultation: clear to auscultation bilaterally Cardio: Rate: regular rate Rhythm: regular rhythm GI: GI Palp: Yes Soft to palpation Auscultation: normal bowel sounds Psych: Mental Status: mental status grossly normal Course Course Emergency Course: patient will will send antibiotics and anti-inflammatory pain medicine to his local pharmacy and patient has a scheduled follow-up with his oral surgeon Critical Care Time Critical Care Time Critical Care Time: No Discharge Plan Discharge Clinical Impression: Dental abscess, Toothache Patient Disposition: Home Condition: Stable Instructions: Antibiotic Form, Dental Abscess (ED), Toothache (ED) Additional Instructions: advised patient to take medication as prescribed Patient Language: [place] Prescriptions: New amoxicillin-pot clavulanate [Augmentin] 500-125 mg tablet 1 tablet PO TID Qty: 30 0RF naproxen 500 mg tablet 500 mg PO BID PRN (Reason: pain) Qty: 20 0RF No Action amoxicillin-pot clavulanate 875-125 mg tablet 1 tablet PO Q12H Qty: 14 0RF Follow-up/Referrals: Jeanne Gutierrez MD [Primary Care Provider, Family Practice] Stand Alone Forms: Work/School Release IP Time of Disposition: 15:24
[2024-12-07 15:20] VITALS: BP 136/84; PULSE 104; RESP 16; TEMP 36.9; O2SAT 97
== END 2024-12-07 15:35 | disposition home or self-care (01) ==
LOC: CHSED 15:30
PROVIDERS: Emergency Provider Emergency Medicine; PCP Family Medicine
DX: K04.7 Periapical abscess without sinus (principal)
CPT/HCPCS: 99283